=== PATIENT | male | born 1965 | race Caucasian/White ===

== ENCOUNTER → 2018-03-11 | Outpatient (CLI) | payer OTHER ==
[2018-03-11 12:48] LABS: ALBUMIN 3.6 g/dL (3.4-5.0); ALKALINE PHOSPHATASE 84 U/L (46-116); ANION GAP 4 mmol/L (7-16); BUN 7 mg/dL (7-18); CALCIUM 8.7 mg/dL (8.5-10.1); CHLORIDE 99 mmol/L (98-107); CHOLESTEROL 211 mg/dL (<200); CO2 32 mmol/L (21-32); CREATININE 0.8 mg/dL (0.6-1.3); GLUCOSE 150 mg/dL (70-99); HDL CHOLESTEROL 38 mg/dL (>40); LDL CHOLESTEROL 126 mg/dL (<100); POTASSIUM 4.1 mmol/L (3.5-5.1); SERUM ASSESSMENT Clear; SGOT 18 U/L (15-37); SGPT 30 U/L (30-65); SODIUM 135 mmol/L (136-145); TC:HDL 5.6 Ratio (Not establshd); TOTAL BILIRUBIN 0.5 mg/dL (<0.1-1.0); TOTAL PROTEIN 7.8 g/dL (6.4-8.2); TRIGLYCERIDE 239 mg/dL (<150); VLDL 48 mg/dL (<40)
[2018-03-12 03:07] LABS: GLYCOHEMOGLOBIN (HGB A1C) 9.2 % (4.8-5.6)
== END ==
LOC: M.RAD 12:21
PROVIDERS: Family Medicine
DX: Z11.1 Encounter for screening for respiratory tuberculosis (principal); E11.69 Type 2 diabetes mellitus with other specified complication; E78.2 Mixed hyperlipidemia

== ENCOUNTER 2018-08-06 18:38 | Emergency (ER) | payer OTHER ==
[~2018-08-06] VITALS: Ht 180.3 cm; Wt 91.2 kg
[2018-08-06] MEDS ORDERED: METFORMIN HCL500 MG PO (18:59)
[2018-08-06] MEDS ORDERED: LYRICA 75 MG CA75 MG PO (19:00)
[2018-08-06] MEDS ORDERED: LIPITOR40 MG PO (19:00)
[2018-08-06] MEDS ORDERED: HUMALOG100 UNIT/1 SUBQ (19:01)
[2018-08-06 19:16] LABS: URINE BILIRUBIN NEGATIVE (Negative); URINE BLOOD NEGATIVE (Negative); URINE CLARITY CLEAR; URINE COLOR YELLOW; URINE GLUCOSE-RANDOM 1+ (Negative); URINE KETONES NEGATIVE (Negative); URINE LEUKOCYTES-REFLEX NEGATIVE (Negative); URINE NITRITE-REFLEX NEGATIVE (Negative); URINE PROTEIN NEGATIVE (Negative); URINE UROBILINOGEN 0.2 E.U./dl (0.2-1.0)
[2018-08-06 19:24] LABS: ABSOLUTE BASOPHILS 0.1 thou/uL (0.0-0.2); ABSOLUTE EOSINOPHILS 0.1 thou/uL (0.0-0.7); ABSOLUTE LYMPHOCYTES 3.7 thou/uL (0.8-5.3); ABSOLUTE MONOCYTES 0.7 thou/uL (0.0-1.2); ABSOLUTE NEUTROPHILS 4.8 thou/uL (1.6-8.1); EOSINOPHILS 1.3 %; HEMATOCRIT 44.5 % (42.0-52.0); HEMOGLOBIN 15.2 gm/dL (14.0-18.0); LYMPHOCYTES 38.9 %; MCHC 34.2 g/dL (28.0-37.0); MCV 87.7 fL (80.0-100.0); MONOCYTES 7.7 %; MPV 8.3 fl. (7.2-11.1); NUCLEATED RBCS 0 /100WBC; PLATELET COUNT* 324 thou/uL (150-400); POLYS 51.1 %; RBC 5.08 mil/uL (4.50-6.00); RDW-CV 13.9 % (10.5-14.5); WBC 9.4 thou/uL (4.0-11.0)
[2018-08-06 19:32] LABS: CALCIUM 8.7 mg/dL (8.5-10.1); CREATININE 0.9 mg/dL (0.6-1.3); POTASSIUM 3.6 mmol/L (3.5-5.1)
[2018-08-06 19:37] LABS: ALBUMIN 3.6 g/dL (3.4-5.0); TOTAL BILIRUBIN 0.5 mg/dL (<0.1-1.0); TOTAL PROTEIN 7.5 g/dL (6.4-8.2)
[2018-08-06] MEDS ORDERED: NABUMETONE 750750 M1 PO (20:25)
[2018-08-06] MEDS ORDERED: NORCO 5-325 TA1 EACH PO (20:25)
[2018-08-06 20:40] VITALS: BP 126/75
== END 2018-08-06 20:41 | disposition home or self-care (01) ==
LOC: M.ERS 18:38
PROVIDERS: Nurse Practitioner Family
DX: R10.9 Unspecified abdominal pain (principal); E11.9 Type 2 diabetes mellitus without complications; E78.00 Pure hypercholesterolemia, unspecified; E11.40 Type 2 diabetes mellitus with diabetic neuropathy, unspecified; F17.210 Nicotine dependence, cigarettes, uncomplicated; Z98.890 Other specified postprocedural states; Z79.4 Long term (current) use of insulin

== ENCOUNTER → 2018-08-11 | Outpatient (CLI) | payer OTHER ==
[~2018-08-11] MED LIST: HUMALOG100 UNIT/1 SUBQ; LIPITOR40 MG PO; LYRICA 75 MG CA75 MG PO; METFORMIN HCL500 MG PO; NABUMETONE 750750 M1 PO; NORCO 5-325 TA1 EACH PO
== END ==
LOC: M.LAB 12:06
PROVIDERS: Nurse Practitioner
DX: E11.8 Type 2 diabetes mellitus with unspecified complications (principal); R81 Glycosuria; Z79.4 Long term (current) use of insulin

== ENCOUNTER 2019-01-08 08:26 | Emergency (ER) | payer OTHER ==
[~2019-01-08] VITALS: Ht 180.3 cm; Wt 95.3 kg
[2019-01-08 08:30] VITALS: BP 160/96
[2019-01-08] MEDS ORDERED: TRAMADOL 50 MG50 MG PO (08:43)
[2019-01-08] MEDS ORDERED: TOUJEO SOL300 UNIT/1 SUBQ (08:44)
[2019-01-08] MEDS ORDERED: KEFLEX500 M1 PO (08:53)
== END 2019-01-08 09:00 | disposition home or self-care (01) ==
LOC: M.ERS 08:26
DX: H00.011 Hordeolum externum right upper eyelid (principal); L03.213 Periorbital cellulitis; F17.210 Nicotine dependence, cigarettes, uncomplicated; E78.00 Pure hypercholesterolemia, unspecified; E11.40 Type 2 diabetes mellitus with diabetic neuropathy, unspecified; Z90.89 Acquired absence of other organs; Z79.4 Long term (current) use of insulin